=== PATIENT | female | born 1970 | race Caucasian/White ===

== ENCOUNTER 2017-04-27 16:45 | Emergency (ER) | payer BC ==
[~2017-04-27] VITALS: Ht 160 cm; Wt 72.6 kg
[2017-04-27 16:45] VITALS: TEMP 36.6; Ht 160 cm; Wt 72.6 kg
[~2017-04-27 16:45] MED LIST: ALLDSR/24 PO; CLTP PO; EST1 PO; FLNIN/ NAE; OMEG10007 PO
[2017-04-27] MEDS ORDERED: DiphenhydrAMINE HCL 50 MG/ML VIAL IV STA (17:03)
[2017-04-27] MEDS ORDERED: METHYLPREDNISOLONE 125 MG VIAL IV STA (17:03)
[2017-04-27] MEDS ORDERED: SODIUM CHLORIDE 0.9% 1000ML 1,000 ML IV STA (17:03)
--- NOTE | 2017-04-27 17:04 | EMERGENCY ROOM VISIT NOTE ---
History Report prepared by Jeff: Ayesha Godinez Under the Supervision of: Dr. Sanket Dickens M.D. 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 Positive SOB, difficulty swallowing, lightheadedness. Negative cough, fever, chills, abdominal pain, nausea, vomiting, chest pain, leg pain/swelling. She did drive to [place] and back 1 week ago. She is not on any blood thinners or control. She does not smoke. She notes that she did apply a new sunblock to her neck and chest today. Source of History: patient Onset: 1400 today Position: other (global) Quality: other (SOB) Timing: other (persistent) Associated Symptoms: + SOB, No fevers, No chills, No cough, No chest pain, No nausea, No vomiting, No abdominal pain Note: Pt reports difficulty swallowing, lightheadedness. Pt denies leg pain/swelling. Review of Systems See HPI for pertinent positives and negatives. A total of ten systems were reviewed and were otherwise negative. Past Medical & Surgical Medical Problems: (1) Acute appendicitis (2) Asthma, Unspecified (3) Chronic Sinusitis Nos (4) Migraines Family History Cancer Lung disease Social History Smoking Status: Never Smoker Marital Status: Housing Status: lives with family Occupation Status: employed Current/Historical Medications Scheduled Calcium Carbonate-Cholecalcife (Caltrate 600+D), 1 TAB PO DAILY Famotidine (Pepcid), 40 MG PO QD Fexofenadine-Pseudoephedrine (Rowan-D 24 Hour Allergy), 1 TAB PO DAILY Fluticasone Propionate (Fluticasone Propionate), 2 SPRAY DENIS DAILY Prednisone (Prednisone), 50 MG PO DAILY Allergies Coded Allergies: Milk (Verified Allergy, Severe, ANAPHYLAXIS, 04/27/17) FACIAL EDEMA(ORAL) Sulfa Drugs (Verified Allergy, Severe, ANAPHYLAXIS, 04/27/17) Erythromycin (Verified Allergy, Unknown, 04/27/17) Physical Exam Vital Signs Date Time Temp Pulse Resp B/P (MAP) Pulse Ox O2 Delivery O2 Flow Rate FiO2 04/27/17 19:16 90 20 131/80 100 04/27/17 18:31 135/83 04/27/17 18:30 85 21 99 04/27/17 18:15 92 23 100 04/27/17 18:04 150/95 04/27/17 18:03 88 21 150/95 99 Room Air 04/27/17 17:45 98 22 100 04/27/17 17:30 82 18 99 04/27/17 17:15 83 04/27/17 17:15 85 21 98 04/27/17 17:01 137/86 04/27/17 17:00 80 20 137/86 96 Room Air 04/27/17 16:45 36.6 86 21 136/83 100 Room Air 04/27/17 16:45 100 Room Air Physical Exam GENERAL: Awake, alert, well-appearing, NAD HENT: Normocephalic, atraumatic. Posterior pharynx is clear, no uvular deviation or peritonsillar swelling. Pt is handing secretions without issue. No stridor. EYES: Normal conjunctiva. Sclera non-icteric. NECK: Supple. No nuchal rigidity. FROM. RESPIRATORY: CTAB, no rhonchi, wheezing, crackles CARDIAC: RRR, no MRG ABDOMEN: Soft, NTND, BS+ MSK: No chest wall TTP, no LE edema or erythema, negative José's sign. NEURO: GCS 15, CN 2-12 intact, moves all 4s on command SKIN: No rash or jaundice noted. Medical Decision & Procedures ER Provider Diagnostic Interpretation: Radiology results as stated below per my review and radiologist interpretation: CHEST ONE VIEW PORTABLE CLINICAL HISTORY: 46 years-old Female presenting with SOB. TECHNIQUE: Portable upright AP view of the chest was obtained. COMPARISON: None. FINDINGS: Cardiomediastinal silhouette normal. Lungs and pleural spaces clear. Osseous structures normal. Upper abdomen normal. IMPRESSION: 1. No acute cardiopulmonary disease. Electronically signed by: Ole Flynn M.D. 04/27/2017 5:48 PM Dictated Date/Time: 04/27/2017 5:47 PM Laboratory Results 04/27/17 16:20 Red Blood Count 4.25, Mean Corpuscular Volume 89.9, Mean Corpuscular Hemoglobin 29.2, Mean Corpuscular Hemoglobin Concent 32.5, Mean Platelet Volume 10.4, Neutrophils (%) (Auto) 44.6, Lymphocytes (%) (Auto) 46.3, Monocytes (%) (Auto) 6.6, Eosinophils (%) (Auto) 1.8, Basophils (%) (Auto) 0.6, Neutrophils # (Auto) 3.57, Lymphocytes # (Auto) 3.70, Monocytes # (Auto) 0.53, Eosinophils # (Auto) 0.14, Basophils # (Auto) 0.05 04/27/17 16:20 Test 04/27/17 16:20 04/27/17 17:13 White Blood Count 8.00 K/uL (4.8-10.8) Red Blood Count 4.25 M/uL (4.2-5.4) Hemoglobin 12.4 g/dL (12.0-16.0) Hematocrit 38.2 % (37-47) Mean Corpuscular Volume 89.9 fL (80-100) Mean Corpuscular Hemoglobin 29.2 pg (25-34) Mean Corpuscular Hemoglobin Concent 32.5 g/dl (32-36) Platelet Count 369 K/uL (130-400) Mean Platelet Volume 10.4 fL (7.4-10.4) Neutrophils (%) (Auto) 44.6 % Lymphocytes (%) (Auto) 46.3 % Monocytes (%) (Auto) 6.6 % Eosinophils (%) (Auto) 1.8 % Basophils (%) (Auto) 0.6 % Neutrophils # (Auto) 3.57 K/uL (1.4-6.5) Lymphocytes # (Auto) 3.70 K/uL (1.2-3.4) Monocytes # (Auto) 0.53 K/uL (0.11-0.59) Eosinophils # (Auto) 0.14 K/uL (0-0.5) Basophils # (Auto) 0.05 K/uL (0-0.2) RDW Standard Deviation 43.5 fL (36.4-46.3) RDW Coefficient of Variation 13.3 % (11.5-14.5) Immature Granulocyte % (Auto) 0.1 % Immature Granulocyte # (Auto) 0.01 K/uL (0.00-0.02) Anion Gap 8.0 mmol/L (3-11) Est Creatinine Clear Calc Drug Dose 77.3 ml/min Estimated GFR () 93.9 Estimated GFR (Non- 81.0 BUN/Creatinine Ratio 12.8 (10-20) Calcium Level 9.0 mg/dl (8.5-10.1) Bedside Troponin I < 0.030 ng/ml (0-0.045) Laboratory results reviewed by me Medications Administered Medications (Trade) Dose Ordered Sig/Chito Route Start Time Stop Time Status Last Admin Dose Admin Diphenhydramine HCl (Benadryl Inj) 25 mg NOW STAT IV 04/27/17 17:03 04/27/17 17:06 DC 04/27/17 17:29 25 MG Sodium Chloride 1,000 ml @ 999 mls/hr Q1H1M STAT IV 04/27/17 17:03 04/27/17 18:03 DC 04/27/17 17:29 999 MLS/HR Famotidine 40 mg/ Dextrose 104 ml @ 200 mls/hr Q12H IV 04/27/17 17:15 04/27/17 19:44 DC 04/27/17 18:04 200 MLS/HR Methylprednisolone Sodium Succinate (Solu-Medrol IV) 125 mg NOW STAT IV 04/27/17 17:03 04/27/17 17:06 DC 04/27/17 17:29 125 MG Lorazepam (Ativan Inj) 1 mg NOW STAT IV 04/27/17 18:04 04/27/17 18:05 DC 04/27/17 18:24 1 MG ECG Indication: SOB/dyspnea Rate (beats per minute): 81 Rhythm: normal sinus Findings: other (normal intervals, normal axis, no STS changes or TWI) ED Course 1651: The patient was evaluated in room C6. A complete history and physical exam was performed. 1754: I reevaluated the patient. I discussed results and discharge instructions : She verbalized understanding and agreement. The patient is ready for discharge. 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 Differential diagnosis: Etiologies such as infections, reactive airway disease, pneumonia, pneumothorax , COPD, CHF, cardiac ischemia, pulmonary embolism, musculoskeletal, gastrointestinal, as well as others were entertained. Patient was seen and evaluated at the bedside. Patient was concerned about a possible allergic reaction. Patient was stating she was having some shortness of breath. Patient states she does have anaphylaxis to dairy. Patient only had a recent change in a somewhat. She applied to her anterior neck. Patient does have mild splotchiness the anterior neck. Patient is clear to auscultation bilaterally is non-stridulous and patient does not have any low blood pressure. Patient has not had any vomiting. Patient looks very well. Given the patient's recent complaints and EKG troponin chest x-ray and laboratory completed. Patient had a fairly benign EKG and a negative troponin. Patient was PRC negative so less likely PE. Given the patient's history, physical, EKG, troponin, patient with a heart score less than 3. Less likely ACS. CXR clear. Patient was feeling little jittery after receiving the Solu- Medrol. Patient was given a dose of Ativan. Patient was feeling much improved. She was told to continue the prednisone given the possibility of an allergic reaction. Patient was given strict follow-up, discharge, and return precautions. Patient agreed with plan of care patient was safely discharged home. Medication Reconcilliation Current Medication List: was personally reviewed by me Blood Pressure Screening Patient's blood pressure: Elevated blood pressure Blood pressure disposition: Elevated BP felt to be situational Impression Primary Impression: SOB (shortness of breath) Scribe Attestation The scribe's documentation has been prepared under my direction and personally reviewed by me in its entirety. I confirm that the note above accurately reflects all work, treatment, procedures, and medical decision making performed by me. Departure Information Dispostion Home / Self-Care Prescriptions Prednisone (PREDNISONE) 50 Mg Tab 50 MG PO DAILY for 4 Days, #4 TAB Prov: Sanket Dickens M.D. 04/27/17 Famotidine (PEPCID) 40 Mg Tab 40 MG PO QD for 30 Days, #30 TAB Prov: Sanket Dickens M.D. 04/27/17 Referrals Mia David M.D. (PCP) Patient Instructions ED Dyspnea Shortness of Breath, My [facility] Additional Instructions Please return to the emergency department if you have worsening or recurrent symptoms not amenable to at-home treatment. Please call for a follow-up appointment with her primary care physician. Please take your medications as prescribed. If you have other concerns and/or complaints please feel free to also call your primary care physician's office or return the ED for further evaluation, management, and treatment. You received narcotic or benzodiazepene medication while in the emergency room today. This is an addictive medication that may cause drowziness as well as constipation. Do not drive, operate heavy machinery, or drink alcohol under the influence of this medication. Please take steroids as prescribed and with food. Also take with the famotidine to help avoid upset stomach. You have been examined and treated today on an emergency basis only. This is not a substitute for, or an effort to provide, complete comprehensive medical care. It is impossible to recognize and treat all injuries or illnesses in a single emergency department visit. It is therefore important that you follow up closely with [facility]. Call as soon as possible for an appointment. Thank you for your time and consideration. I look forward to speaking with you again soon. Please don't hesitate to call us if you have any questions.
[2017-04-27] MEDS ORDERED: FEXO1TAB58 PO (17:11)
[2017-04-27] MEDS ORDERED: CALC-354 PO (17:11)
[2017-04-27] MEDS ORDERED: FAMOTIDINE IV INJ 40 MG in DEXTROSE 5% 100ML 100 ML IV SCH (17:15)
[2017-04-27 17:28] LABS: BASO % 0.6 %; BASO ABS # 0.05 K/uL (0-0.2); COMPLETE YES; EOS % 1.8 %; HEMATOCRIT 38.2 % (37-47); IG% 0.1 %; LYMPH % 46.3 %; MEAN CELL VOLUME 89.9 fL (80-100); MEAN CORPUSCULAR HEMOGLOBIN 29.2 pg (25-34); MEAN CORPUSCULAR HGB CONC 32.5 g/dl (32-36); MEAN PLATELET VOLUME 10.4 fL (7.4-10.4); MONO % 6.6 %; NEUT % 44.6 %; PLATELET COUNT 369 K/uL (130-400); RED BLOOD COUNT 4.25 M/uL (4.2-5.4)
[2017-04-27 17:36] LABS: BUN/CREATININE RATIO 12.8 (10-20); CREATININE 0.85 mg/dl (0.60-1.20); POTASSIUM 3.6 mmol/L (3.5-5.1)
--- NOTE | 2017-04-27 17:49 | DIAGNOSTIC IMAGING REPORT ---
CHEST ONE VIEW PORTABLE CLINICAL HISTORY: 46 years-old Female presenting with SOB. TECHNIQUE: Portable upright AP view of the chest was obtained. COMPARISON: None. FINDINGS: Cardiomediastinal silhouette normal. Lungs and pleural spaces clear. Osseous structures normal. Upper abdomen normal. IMPRESSION: 1. No acute cardiopulmonary disease. Electronically signed by: Ole Flynn M.D. 04/27/2017 5:48 PM Dictated Date/Time: 04/27/2017 5:47 PM
[2017-04-27] MEDS ORDERED: LORAZEPAM 2 MG/ML 1 ML VIAL IV STA (18:04)
[2017-04-27] MEDS ORDERED: FAMO40TA6 PO (18:38)
[2017-04-27] MEDS ORDERED: PRED50TA PO (18:38)
[2017-04-27 19:16] VITALS: BP 131/80; PULSE 90; O2SAT 100
== END 2017-04-27 19:18 | disposition home or self-care (01) ==
LOC: EDBD 16:45 → C.EDC 16:45
DX: R06.02 Shortness of breath (principal); J45.909 Unspecified asthma, uncomplicated; Z90.710 Acquired absence of both cervix and uterus; J32.9 Chronic sinusitis, unspecified

== ENCOUNTER → 2017-10-21 | Outpatient (CLI) | payer OTHER ==
[~2017-10-21] MED LIST changes: -ALLDSR/24 PO; +CALC-354 PO; -CLTP PO; -EST1 PO; +FEXO1TAB58 PO; +GADOXETATE DISODIUM (NON-WT BASED PROCEDURE) IV PRN; -OMEG10007 PO
--- NOTE | 2017-10-21 09:29 | DIAGNOSTIC IMAGING REPORT ---
MRI OF THE ABDOMEN COMBO CLINICAL HISTORY: Unspecified hepatic lesion. COMPARISON STUDY: Abdominal CT dated 01/08/2011. TECHNIQUE: MRI of the abdomen is performed transverse T1 and T2-weighted sequences in the axial and coronal planes. Contrast enhanced sequences were acquired following the IV administration of 10 cc of Eovist. Subtraction imaging diffusion-weighted sequences were obtained. MRCP imaging was acquired. FINDINGS: Lower chest: No pleural effusion is identified. The heart is normal in size. Liver: The liver is normal in size, contour, and signal intensity. No intrahepatic biliary ductal dilatation is seen. The hepatic veins and portal veins are patent. There is a 1.8 x 2.4 x 2.1 cm T1 slightly hypointense and T2 slightly hyperintense lesion identified in hepatic segment V. This is best seen on postcontrast image #49. This lesion demonstrates a small central scar and shows restricted diffusion. This lesion demonstrates arterial phase enhancement enhancement, an becomes nearly isointense to the surrounding hepatic parenchyma on the more delayed phases of enhancement. This shows mild peripheral retention of Eovist on the delayed sequences. No additional hepatic lesion is clearly seen. Gallbladder and MRCP: The gallbladder is not identified and presumed surgically absent. The common bile duct measures up to 6 mm in diameter. No filling defects are identified to suggest choledocholithiasis. The pancreatic duct is normal. Spleen: Normal in size and signal intensity. Pancreas: Unremarkable. Adrenal glands: Unremarkable. Kidneys: The kidneys are normal in size and without hydronephrosis. The kidneys enhance and excrete symmetrically. Bowel: There is moderate colonic fecal retention. No bowel obstruction is seen. Peritoneum: There is no abdominal ascites. Lymphadenopathy: None. Skeletal structures: Visualized skeletal structures times are normal marrow signal intensity. IMPRESSION: 1. There is a 2.4 cm lesion in the right lobe of the liver as detailed above. Although slightly atypical, the enhancement kinetics are most suggestive of a benign focal nodular hyperplasia. This lesion was not clearly seen by CT in 2010, and a precautionary 6 month follow-up examination as well as correlation with serum AFP levels is recommended. 2. No additional hepatic lesion is seen. 3. Moderate colonic fecal retention. Electronically signed by: Alex Galvan M.D. 10/21/2017 9:27 AM Dictated Date/Time: 10/21/2017 9:08 AM
== END | disposition home or self-care (01) ==
LOC: C.MRI 07:32
PROVIDERS: ATTEND Physician Assistant Medical
DX: K76.9 Liver disease, unspecified (principal)